=== PATIENT | female | born 1965 | race Caucasian/White ===

== ENCOUNTER 2019-07-02 11:34 | Inpatient (IN) ==
[2019-07-02 12:32] LABS: Basophils % 0.3 % (0.0-0.8); Hematocrit 43.1 VOL% (35.7-47.0); Hemoglobin 14.8 GM/DL (12.0-16.0); Immature Granulocytes % 0.7 %; Immature Granulocytes Absolute 0.11 #; Lymphocytes # 1.1 10*3/uL (1.4-4.0); Lymphocytes % 6.9 % (21.3-54.2); Mean Corpuscular HGB Conc 34.3 GM/DL (32-36); Mean Corpuscular Volume 87.8 FL (87-102); Mean Platelet Volume 9.1 FL (9.6-12.0); Monocytes % 5.9 % (1.7-12.7); Neutrophils % 86.2 % (38.7-73.9); Platelet Count 271 T/CUMM (130-400); Red Blood Count 4.91 MC/CUMM (3.8-5.5); Red Cell Distribution Width 12.6 % (9.3-17.3); White Blood Count 15.6 T/CUMM (4-12)
[2019-07-02 12:38] LABS: Apearance,Urine CLEAR (Clear); Bilirubin,Urine Negative (Negative); Blood, Urine Moderate mg/dL (Negative); Glucose,Urine (UA) >=500 mg/dL (Negative); Ketones,Urine 5 mg/dL (Negative); Mucus,Urine Occasional /LPF (Occasional); Nitrite,Urine Negative (Negative); Protein,Urine 100 MG/DL; RBC,Urine 5 /HPF (0-4); Squamous Epithelial Cell,Urine Occasional /HPF (0-10); Urine Color Yellow (Yellow); Urine Specific Gravity 1.032 (1.001-1.035); Urine Urobilinogen < 2.0 EU/DL (0.2-1.0); WBC,Urine 2 /HPF (0-6)
[2019-07-02 12:49] LABS: Albumin 4.5 G/DL (3.4-5.0); Bilirubin,Total 0.8 MG/DL (0.2-1.0); Osmolality,Calculated 281.5 MOS/KG (273-304); Total Protein 7.7 G/DL (6.4-8.3)
[2019-07-02] MEDS ORDERED: ACETAMINOPHEN 325 MG TABLET PO PRN (15:42)
[2019-07-02] MEDS ORDERED: ONDANSETRON 4 MG/2 ML VIAL IV PRN (15:42)
[2019-07-02] MEDS ORDERED: DEXTROSE 10% 250 ML BAG IV PRN (16:13)
[2019-07-02] MEDS ORDERED: GLUCAGON 1 MG VIAL IM PRN (16:13)
[2019-07-02 16:27] LABS: Risk Ratio 2.82; Thyroid Stimulating Hormone 2.41 uIU/ml (0.358-3.74)
[2019-07-02] MEDS: INSULIN LISPRO 100 UNIT/ML SUBCUT SCH ×2 (18:06→21:43)
[2019-07-02 18:07] LABS: Hemoglobin 14.2 GM/DL (12.0-16.0)
[2019-07-02] MEDS: PIPERACILLIN/TAZOBACTAM 3,375 MG in SODIUM CHLORIDE 0.9% 100 ML IV SCH ×2 (18:15→23:58)
[2019-07-02] MEDS: SODIUM CHLORIDE 0.9% 1,000 ML IV SCH (18:16)
[2019-07-02] MEDS: POTASSIUM CHLORIDE 20 MEQ TABLET PO PRN ×2 (18:16→21:33)
[2019-07-02] MEDS: PANTOPRAZOLE 40 MG TABLET PO SCH (18:16)
[2019-07-02 19:09] LABS: Apearance,Urine CLOUDY (Clear); Bacteria,Urine Many /HPF (Few); Bilirubin,Urine Negative (Negative); Blood, Urine Moderate mg/dL (Negative); Glucose,Urine (UA) >=500 mg/dL (Negative); Ketones,Urine 20 mg/dL (Negative); Mucus,Urine Many /LPF (Occasional); Nitrite,Urine Negative (Negative); Protein,Urine 100 MG/DL; Squamous Epithelial Cell,Urine Occasional /HPF (0-10); Urine Color Yellow (Yellow); Urine Specific Gravity 1.032 (1.001-1.035); Urine Urobilinogen < 2.0 EU/DL (0.2-1.0); WBC,Urine 36 /HPF (0-6)
[2019-07-02] MEDS: DILTIAZEM CD 180 MG CAPSULE PO SCH (21:31)
[2019-07-02] MEDS: VENLAFAXINE 75 MG TABLET PO SCH (21:32)
[2019-07-02] MEDS: ISOSORBIDE MONONITRATE 60 MG TABLET PO SCH (21:33)
[2019-07-02] MEDS: TRIAMTERENE/HCTZ 37.5-25 MG TABLET PO SCH (21:33)
[2019-07-02 23:39] LABS: Hematocrit 43.3 VOL% (35.7-47.0); Hemoglobin 14.5 GM/DL (12.0-16.0)
[2019-07-03 03:58] LABS: Basophils % 0.2 % (0.0-0.8); Eosinophils % 0.2 % (0.00-10.9); Hematocrit 41.4 VOL% (35.7-47.0); Hemoglobin 13.8 GM/DL (12.0-16.0); Immature Granulocytes Absolute 0.15 #; Lymphocytes # 2.1 10*3/uL (1.4-4.0); Lymphocytes % 13.5 % (21.3-54.2); Mean Corpuscular HGB Conc 33.3 GM/DL (32-36); Mean Platelet Volume 9.3 FL (9.6-12.0); Monocytes % 10.8 % (1.7-12.7); Neutrophils % 74.3 % (38.7-73.9); Platelet Count 242 T/CUMM (130-400); Red Blood Count 4.65 MC/CUMM (3.8-5.5); Red Cell Distribution Width 12.5 % (9.3-17.3); White Blood Count 15.6 T/CUMM (4-12)
[2019-07-03 04:31] LABS: Calcium 9.3 MG/DL (8.5-10.1); Osmolality,Calculated 282.3 MOS/KG (273-304)
[2019-07-03] MEDS: LEVOTHYROXINE 112 MCG TABLET PO SCH (06:13)
[2019-07-03] MEDS: INSULIN LISPRO 100 UNIT/ML SUBCUT SCH ×4 (08:31→20:41)
[2019-07-03] MEDS: SODIUM CHLORIDE 0.9% 1,000 ML IV SCH ×2 (08:35→15:39)
[2019-07-03] MEDS: VENLAFAXINE 75 MG TABLET PO SCH (08:37)
[2019-07-03] MEDS: PANTOPRAZOLE 40 MG TABLET PO SCH (08:38)
[2019-07-03] MEDS: DILTIAZEM CD 180 MG CAPSULE PO SCH (08:38)
[2019-07-03] MEDS: ISOSORBIDE MONONITRATE 60 MG TABLET PO SCH (08:38)
[2019-07-03] MEDS: POTASSIUM CHLORIDE 20 MEQ TABLET PO SCH (08:38)
[2019-07-03] MEDS: TRIAMTERENE/HCTZ 37.5-25 MG TABLET PO SCH (08:38)
[2019-07-03] MEDS: PIPERACILLIN/TAZOBACTAM 3,375 MG in SODIUM CHLORIDE 0.9% 100 ML IV SCH ×2 (08:39→15:40)
[2019-07-03] MEDS ORDERED: TRIAMTERENE/HCTZ 37.5-25 MG TABLET PO SCH (09:00)
[2019-07-03] MEDS ORDERED: VENLAFAXINE 75 MG TABLET PO SCH (09:00)
[2019-07-03] MEDS ORDERED: ISOSORBIDE MONONITRATE 60 MG TABLET PO SCH (09:00)
[2019-07-03] MEDS ORDERED: DILTIAZEM CD 180 MG CAPSULE PO SCH (09:00)
[2019-07-03] MEDS: HYOSCYAMINE 0.125 MG TABLET PO SCH ×2 (13:37→18:46)
[2019-07-04] MEDS: PIPERACILLIN/TAZOBACTAM 3,375 MG in SODIUM CHLORIDE 0.9% 100 ML IV SCH ×3 (00:11→17:20)
[2019-07-04] MEDS: HYOSCYAMINE 0.125 MG TABLET PO SCH ×4 (00:11→21:33)
[2019-07-04] MEDS: SODIUM CHLORIDE 0.9% 1,000 ML IV SCH ×2 (00:12→09:28)
[2019-07-04 05:29] LABS: Basophils # 0.1 10*3/uL (0.0-0.2); Basophils % 0.5 % (0.0-0.8); Eosinophils # 0.4 10*3/uL (0.0-0.87); Eosinophils % 2.7 % (0.00-10.9); Hematocrit 41.1 VOL% (35.7-47.0); Hemoglobin 13.3 GM/DL (12.0-16.0); Immature Granulocytes Absolute 0.13 #; Lymphocytes # 3.1 10*3/uL (1.4-4.0); Lymphocytes % 22.5 % (21.3-54.2); Mean Corpuscular HGB Conc 32.4 GM/DL (32-36); Mean Corpuscular Volume 91.7 FL (87-102); Mean Platelet Volume 9.2 FL (9.6-12.0); Monocytes % 8.6 % (1.7-12.7); Neutrophils % 64.7 % (38.7-73.9); Platelet Count 211 T/CUMM (130-400); Red Blood Count 4.48 MC/CUMM (3.8-5.5); Red Cell Distribution Width 12.6 % (9.3-17.3); White Blood Count 13.6 T/CUMM (4-12)
[2019-07-04] MEDS: LEVOTHYROXINE 112 MCG TABLET PO SCH (05:54)
[2019-07-04 06:00] LABS: Calcium 8.8 MG/DL (8.5-10.1); Osmolality,Calculated 275.5 MOS/KG (273-304)
[2019-07-04] MEDS: INSULIN LISPRO 100 UNIT/ML SUBCUT SCH ×4 (08:39→21:27)
[2019-07-04] MEDS: TRIAMTERENE/HCTZ 37.5-25 MG TABLET PO SCH (09:18)
[2019-07-04] MEDS: POTASSIUM CHLORIDE 20 MEQ TABLET PO SCH (09:18)
[2019-07-04] MEDS: DILTIAZEM CD 180 MG CAPSULE PO SCH (09:19)
[2019-07-04] MEDS: PANTOPRAZOLE 40 MG TABLET PO SCH (09:19)
[2019-07-04] MEDS: VENLAFAXINE 75 MG TABLET PO SCH (09:19)
[2019-07-04] MEDS: ISOSORBIDE MONONITRATE 60 MG TABLET PO SCH (09:19)
[2019-07-04] MEDS: POTASSIUM CHLORIDE 20 MEQ TABLET PO PRN (21:34)
[2019-07-05] MEDS: HYOSCYAMINE 0.125 MG TABLET PO SCH ×4 (01:31→22:25)
[2019-07-05 05:59] LABS: Basophils # 0.1 10*3/uL (0.0-0.2); Basophils % 0.7 % (0.0-0.8); Eosinophils # 0.5 10*3/uL (0.0-0.87); Eosinophils % 4.5 % (0.00-10.9); Hematocrit 38.9 VOL% (35.7-47.0); Hemoglobin 13.2 GM/DL (12.0-16.0); Immature Granulocytes % 1.2 %; Immature Granulocytes Absolute 0.13 #; Lymphocytes # 2.3 10*3/uL (1.4-4.0); Lymphocytes % 22.1 % (21.3-54.2); Mean Corpuscular HGB Conc 33.9 GM/DL (32-36); Mean Platelet Volume 9.5 FL (9.6-12.0); Neutrophils % 62.5 % (38.7-73.9); Platelet Count 216 T/CUMM (130-400); Red Blood Count 4.37 MC/CUMM (3.8-5.5); Red Cell Distribution Width 12.3 % (9.3-17.3); White Blood Count 10.6 T/CUMM (4-12)
[2019-07-05] MEDS: LEVOTHYROXINE 112 MCG TABLET PO SCH (06:10)
[2019-07-05 06:55] LABS: Calcium 9.1 MG/DL (8.5-10.1)
[2019-07-05] MEDS: INSULIN LISPRO 100 UNIT/ML SUBCUT SCH ×4 (08:44→22:27)
[2019-07-05] MEDS: SODIUM CHLORIDE 0.9% 1,000 ML IV SCH ×3 (09:11→22:37)
[2019-07-05] MEDS: PANTOPRAZOLE 40 MG TABLET PO SCH (09:12)
[2019-07-05] MEDS: POTASSIUM CHLORIDE 20 MEQ TABLET PO SCH (09:12)
[2019-07-05] MEDS: ISOSORBIDE MONONITRATE 60 MG TABLET PO SCH (09:12)
[2019-07-05] MEDS: VENLAFAXINE 75 MG TABLET PO SCH (09:12)
[2019-07-05] MEDS: POTASSIUM CHLORIDE 20 MEQ TABLET PO PRN ×2 (09:13→16:10)
[2019-07-05] MEDS: TRIAMTERENE/HCTZ 37.5-25 MG TABLET PO SCH (09:13)
[2019-07-05] MEDS: DILTIAZEM CD 180 MG CAPSULE PO SCH (09:14)
[2019-07-05] MEDS: PIPERACILLIN/TAZOBACTAM 3,375 MG in SODIUM CHLORIDE 0.9% 100 ML IV SCH ×2 (09:14)
[2019-07-05] MEDS ORDERED: BISACODYL 5 MG TABLET PO ONE (12:00)
[2019-07-05] MEDS: cefTRIAXone 1,000 MG in SYRINGE 1 EACH IV SCH (12:32)
[2019-07-05] MEDS ORDERED: POLYETHYLENE GLYCOL POWDER 255 GM BOTTLE PO ONE ×2 (13:00→18:00)
[2019-07-05] MEDS ORDERED: MAGNESIUM CITRATE 300 ML BOTTLE PO ONE (21:00)
[2019-07-06] MEDS: HYOSCYAMINE 0.125 MG TABLET PO SCH ×3 (04:40→12:56)
[2019-07-06 05:12] LABS: Basophils % 0.3 % (0.0-0.8); Eosinophils # 0.4 10*3/uL (0.0-0.87); Eosinophils % 4.1 % (0.00-10.9); Hematocrit 41.5 VOL% (35.7-47.0); Hemoglobin 14.1 GM/DL (12.0-16.0); Immature Granulocytes Absolute 0.21 #; Lymphocytes # 2.8 10*3/uL (1.4-4.0); Lymphocytes % 26.4 % (21.3-54.2); Mean Corpuscular Volume 88.9 FL (87-102); Mean Platelet Volume 9.1 FL (9.6-12.0); Neutrophils % 59.2 % (38.7-73.9); Platelet Count 233 T/CUMM (130-400); Red Blood Count 4.67 MC/CUMM (3.8-5.5); Red Cell Distribution Width 12.3 % (9.3-17.3); White Blood Count 10.5 T/CUMM (4-12)
[2019-07-06 05:38] LABS: Eosinophils 10 % (0-10); Hypochromasia 1+; Lymphocytes 23 % (20-55); Platelet Estimate Adequate; Segmented Neutrophils 63 % (50-85); Total Cells Counted 100
[2019-07-06] MEDS: LEVOTHYROXINE 112 MCG TABLET PO SCH (06:30)
[2019-07-06] MEDS ORDERED: LACTATED RINGERS 1,000 ML IV SCH (08:00)
[2019-07-06] MEDS: INSULIN LISPRO 100 UNIT/ML SUBCUT SCH ×2 (08:26→12:57)
[2019-07-06] MEDS: DILTIAZEM CD 180 MG CAPSULE PO SCH (09:14)
[2019-07-06] MEDS: ISOSORBIDE MONONITRATE 60 MG TABLET PO SCH (09:14)
[2019-07-06] MEDS: POTASSIUM CHLORIDE 20 MEQ TABLET PO SCH (10:23)
[2019-07-06] MEDS: PANTOPRAZOLE 40 MG TABLET PO SCH (10:23)
[2019-07-06] MEDS: VENLAFAXINE 75 MG TABLET PO SCH (10:23)
[2019-07-06] MEDS: TRIAMTERENE/HCTZ 37.5-25 MG TABLET PO SCH (10:23)
[2019-07-06] MEDS ORDERED: LIDOCAINE 2% 5 ML VIAL ONE (12:00)
[2019-07-06] MEDS ORDERED: PROPOFOL 200 MG/20 ML VIAL IV ONE (12:00)
[2019-07-06] MEDS ORDERED: ONDANSETRON 4 MG/2 ML VIAL ONE (12:00)
[2019-07-06] MEDS: cefTRIAXone 1,000 MG in SYRINGE 1 EACH IV SCH (12:50)
[2019-07-06 13:52] LABS: INR 1.1; PT Patient Result 11.4 SECS (9.6-12.2)
[2019-07-06 15:39] VITALS: BP 112/54
== END 2019-07-06 16:50 | disposition home or self-care (01) | DRG 392 ==
LOC: N.ED 11:34 → SUATTDRO 15:43 → N.EDINP 15:43 → N.5E 16:53
PROVIDERS: ADMIT Hospitalist; ATTEND Internal Medicine